=== PATIENT | female | born 2005 | race Caucasian/White ===

== ENCOUNTER 2023-03-12 06:03 | Day surgery (SDC) | payer BC, SELFPAY ==
[2023-03-12] VITALS (13 sets, daily range): BP systolic 119–146; BP diastolic 73–84; PULSE 71–757; RESP 16–18; TEMP 36.2–36.8; O2SAT 91–99; BMI 31.4
[2023-03-12] MEDS: LACTATED RINGERS 1000 ML 1,000 ML 100 ML IV (06:20)
[2023-03-12] MEDS: SODIUM CHLORIDE 0.9 % (FLUSH) 10 ML SYRINGE IVF (06:49)
[2023-03-12 06:57] LABS: Ur HCG Qualitative* Negative (Negative)
--- NOTE | 2023-03-12 07:35 | PM.GSPRC ---
Operative Note Pre-op diagnosis: 1. Biliary colic. Post-op diagnosis: 1. Biliary colic. 2. Chronic cholecystitis. Type of Procedure: 1. Laparoscopic cholecystectomy. Indications: 17-year-old female was seen in clinic with recurrent episodes of epigastric and upper quadrant pain that started in December. Patient described those painful episodes after eating greasy food. She had vomiting associated with pain. The painful episodes usually started 1/2 hour after eating and lasts for up to 1.5 hours. Upon her workup patient had an abdominal CT done that did not reveal any abnormalities. Patient was seen by Gastroenterology and had upper endoscopy that showed 2 superficial ulcers in the stomach. The biopsies showed borderline increased eosinophils but no evidence of H pylori infection. She was prescribed Omeprazole and has been taking that for the past 6 weeks. Patient states that her pain is minimally improved and she continued to have episodes of right upper quadrant pain after eating greasy food. Patient was subsequently seen in January and had normal liver function tests. A gallbladder ultrasound was obtained that showed normal gallbladder wall thickening with no pericholecystic fluid. She had evidence of cholelithiasis and her common bile duct was 2.5 mm. On clinical exam patient had some discomfort to palpation in epigastrium and right upper quadrant with negative Enriquez sign. Given patient's clinical history and her laboratory and imaging findings, biliary colic was suspected, and laparoscopic cholecystectomy was recommended. The procedure was discussed in detail. The risks associated procedure including infection, bleeding, injury to the common bile duct, and injury to intra-abdominal organs were all discussed with the patient, and she agreed to proceed. Procedure Description: After discussing the risks and benefits of the procedure, the patient signed informed consent.? The operative site was marked and the patient was brought to the operating room and placed on the operating table in supine position.? Care was taken to pad the patient's pressure points.?? The patient was then intubated by anesthesia.?? The operative site was then prepped and draped in the usual sterile fashion.? A time-out was then performed. A 5-mm laparoscopy port was placed in the left upper quadrant guided by a 5-mm laparoscope placed into a translucent trochar.~ Passage through the layers of the abdominal wall was visualized with the laparoscope. Carbon dioxide was connected to the port however the port did not appear to be in the abdomen. I attempted to reposition the port 2 additional times but the peritoneum appeared to be very stretchy and a could not safely places port in the left upper quadrant. This is an was made to place a Nicole port infraumbilically. Local anesthetic was injected inferior to the umbilicus. Skin incision was made infraumbilically with a scalpel. Subcutaneous fat was bluntly dissected with S retractors. The anterior fascia was grasped with Kourtney clamps and incised with scissors. Peritoneum and posterior fascia was grasped with Tarah clamps and incised with scissors. Abdomen was entered. 0-0 Vicryl suture was used and U stitch was placed under direct visualization for closure of this incision at the end of the procedure. ~ A pneumoperitoneum was established. A 30-degree 10-mm laparoscope was advanced into the abdomen. The abdomen was briefly surveyed, and minimal adhesions were noted in the left upper quadrant. A previously placed left upper quadrant port was not in the abdomen and was in subcutaneous tissue. This port was then advanced into the abdomen under direct visualization. Two more 5 mm ports were placed on the right under direct visualization by laparoscope. The gallbladder was identified, and omentum was overlying the gallbladder. The gallbladder was very floppy. The gallbladder was grasped and retracted cephalad. Omental adhesions were taken down off the gallbladder with hook cautery. The fundus was grasped and retracted cephalad. The infundibulum was grasped and retracted laterally, exposing the peritoneum overlying the triangle of Calot. This was then divided and exposed in a blunt fashion and with hook cautery. Common bile duct was identified and care was taken not to injure it. The cystic duct was clearly identified and bluntly dissected circumferentially. The cystic duct was normal in size. Cystic artery was identified and tissues around it were dissected off. The cystic artery and the cystic duct were clearly going into the gallbladder. The cystic duct was then triply ligated with surgical clips on the patient's side and singly clipped on the gallbladder side and divided. The cystic artery was then similarly ligated with clips and divided as well. The gallbladder was dissected from the liver bed in retrograde fashion using hookcautery. The gallbladder was placed into an Endo-Catch bag and removed through the infraumbilical incision. Surgical site was examined for bleeding. No bleeding was seen in the surgical field. The fascia of the infraumbilical incision was then closed with a previously placed Vicryl suture. Pneumoperitoneum was completely reduced after viewing removal of the trocars under direct vision. The skin was then closed with 4-0 monocryl and steristrips were applied. Instrument, sponge, and needle counts were correct at closure and at the conclusion of the case. The patient was transferred to PACU in stable condition. Findings: Omentum adherent to the gallbladder suggestive of chronic cholecystitis. Cystic duct normal in caliber. Anesthesia: GETA Surgeon: Bhavesh Mix MD Estimated blood loss (mL): 5 Specimen: Gallbladder Condition: stable Disposition: PACU
--- NOTE | 2023-03-12 07:49 | W.ANESCHARGE ---
Anesthesia Charges Start Date/Time Anesthesia Start Date: 03/12/23 Anesthesia Start Time: 07:30 Stop Date/Time Anesthesia Stop Date: 03/12/23 Anesthesia Stop Time: 08:55
[2023-03-12] MEDS: BUPIVACAINE 0.25% 30 ML INJECTION (08:33)
--- NOTE | 2023-03-12 08:56 | W.ANESCHARGE ---
Anesthesia Charges Start Date/Time Anesthesia Start Date: 03/12/23 Anesthesia Start Time: 07:30 Stop Date/Time Anesthesia Stop Date: 03/12/23 Anesthesia Stop Time: 08:55
[2023-03-12] MEDS: ONDANSETRON 2 MG/ML inj 4 MG IVP (09:10)
[2023-03-12] MEDS: fentaNYL 100 MCG/2 ML inj 50 MCG IVP (09:18)
== END 2023-03-12 10:50 | disposition home or self-care (01) ==
PROVIDERS: PCP Nurse Practitioner Family; Visit Provider Surgery
PROC: 0FT44ZZ Resection of Gallbladder, Percutaneous Endoscopic Approach (ICD-10-PCS; CPT 47562; principal; 2023-03-12 07:30)
DX: K80.10 Calculus of gallbladder with chronic cholecystitis without obstruction (principal)
CPT/HCPCS: 47562; 00790; 81025; 88304; J0330; J0665; J1100; J2250; J2405; J2704; J3010; J7120